=== PATIENT | male | born 1995 | race Caucasian/White ===

== ENCOUNTER 2017-01-13 17:22 | Emergency (ER) | payer OTHER ==
[~2017-01-13] VITALS: Ht 170.2 cm; Wt 87.0 kg
[~2017-01-13 17:22] MED LIST: IBUP-988 PO; IBUP800T23 PO; PERC5TAB12 PO; TAMS5CAP PO
--- NOTE | 2017-01-13 18:03 | PD ---
HPI . Sore throat, fever and nausea and vomiting Chief Complaint: GI Complaint Time Seen by Provider: 18:03 Travel History International Travel<30 days: No Contact w/Intl Traveler<30days: No Traveled to known affect area: No History of Present Illness HPI 21-year-old male here with complaints of sore throat for approximately 2 days with possible fever, nausea and vomiting for 1 day. Patient says he thinks he may have the flu. He said approximately 2 days ago he developed a sore throat, possible fevers as he had chills and sweating. He's been taking TheraFlu without much relief. He also reports that yesterday he developed sudden onset of nausea and diarrhea. He tells me that today he vomited times one episode. He had 2-3 bowel movements today. He denies exposure to any sick contacts. He does not have a primary care provider. He has no other complaints. PFSH Past Medical History Cancer: No Diabetes: No Diminished Hearing: No Headaches: Yes (FREQUENT HEADACHES. HX OF MIGRAINES) Psychiatric: Yes (1 instance when a kid) Immunizations Current: Yes Migraines: No Seizures: No Thyroid Disease: No Ulcer: No Tetanus Vaccination: < 5 Years Influenza Vaccination: No Past Surgical History Surgical History: No Previous Surgery Appendectomy: No Section: Yes Cholecystectomy: No Social History Alcohol Use: Yes (OCASSIONALLY) Tobacco Use: No Substance Use: No Allergies-Medications (Allergen,Severity, Reaction): Coded Allergies: No Known Allergies (Verified , 01/13/17) Reported Meds & Prescriptions Reported Meds & Active Scripts Active No Active Prescriptions or Reported Medications Review of Systems General / Constitutional: Positive: Fever, Chills Eyes: No: Visual changes HENT: Positive: Sore Throat, No: Headaches Cardiovascular: No: Chest Pain or Discomfort Respiratory: No: Shortness of Breath Gastrointestinal: Positive: Nausea, Vomiting, Diarrhea, No: Abdominal Pain Genitourinary: No: Dysuria Musculoskeletal: No: Pain Skin: No Rash Neurologic: No: Weakness Psychiatric: No: Depression Endocrine: No: Polydipsia Hematologic/Lymphatic: No: Easy Bruising Physical Exam Narrative GENERAL: AAO x 3, no acute distress, Well-nourished, well-developed patient. SKIN: Warm and dry. No visible rashes or bruising. HEAD: Normocephalic and atraumatic. EYES: No scleral icterus. No injection or drainage. ENT: No nasal drainage noted. Mucous membranes pink. Airway patent. Moderate posterior pharynx erythema without exudates. Mild tonsillar edema. TMs normal bilaterally. NECK: Supple, trachea midline. No JVD. Significant cervical chain lymphadenopathy. CARDIOVASCULAR: Regular rate and rhythm without murmurs, gallops, or rubs. RESPIRATORY: Breath sounds equal bilaterally. No accessory muscle use. No rhonchi or rales. GASTROINTESTINAL: Abdomen soft, non-tender, nondistended. Normoactive bowel sounds. EXTREMITIES: No cyanosis or edema. BACK: Nontender without obvious deformity. No CVA tenderness. PSYCH: AAO x 3, normal affect. Data Data Last Documented VS Vital Signs Date Time Temp Pulse Resp B/P Pulse Ox O2 Delivery O2 Flow Rate FiO2 01/13/17 18:09 98.2 78 16 128/73 98 Room Air Orders Influenzae A/B Antigen (01/13/17 18:07) Group A Rapid Strep Screen (01/13/17 18:07) Strep Culture (Group A) (01/13/17 18:10) MDM Medical Decision Making Medical Screen Exam Complete: Yes Emergency Medical Condition: Yes Medical Record Reviewed: Yes Differential Diagnosis Influenza, acute pharyngitis, sinusitis, less likely pneumonia, less likely bronchitis Narrative Course 21-year-old male here with complaints of sore throat for approximately 2 days with possible fever, nausea and vomiting for 1 day. Patient says he thinks he may have the flu. He said approximately 2 days ago he developed a sore throat, possible fevers as he had chills and sweating. He's been taking TheraFlu without much relief. He also reports that yesterday he developed sudden onset of nausea and diarrhea. He tells me that today he vomited times one episode. He had 2-3 bowel movements today. He denies exposure to any sick contacts. He does not have a primary care provider. He has no other complaints. Patient seen and examined. He has moderate posterior pharynx erythema and mild edema on examination. He also has some laryngitis as he is barely able to speak. His symptoms are consistent with influenza. I will swab him. If positive I will treat with Tamiflu. I will also check him for strep. If positive I will give him some antibiotics. Both tests are negative. I explained to him that this is likely a viral process and is self limiting. Explained that I will provide zofran for nausea. He can use tylenol or motrin PRN pain and fever. Patient verbalized understanding of instructions, questions were answered, and thanked me for their care. I advised them if their condition worsens, please return to the nearest emergency room for further care. Diagnosis Primary Impression: Viral infection Additional Impression: Viral intestinal infection Patient Instructions: Gastroenteritis (ED), General Instructions Additional Instructions: Please return to emergency department if your symptoms return or worsen. Follow up with your primary care provider. Take medications as prescribed. Use Zofran as needed for nausea. Take Tylenol or Motrin as needed for pain and fever. Med/Other Pt SpecificInfo: Prescription(s) given Scripts Ondansetron Odt (Zofran Odt)8 Mg Tab8 Mg SL Q12H PRN (NAUSEA OR VOMITING) #10 TAB Ref 0 Prov:Myranda Metcalf MD 01/13/17 Disposition: 01 DISCHARGE HOME Condition: Stable Cindy Salgado Jan 13, 2017 18:03
[2017-01-13 18:09] VITALS: BP 128/73; PULSE 78; RESP 16; TEMP 98.2; O2SAT 98
[2017-01-13] MEDS ORDERED: ZOFR8TAB4 SL (18:53)
== END 2017-01-13 19:02 | disposition home or self-care (01) ==
LOC: NEPD 17:22
DX: B34.9 Viral infection, unspecified (principal); A08.4 Viral intestinal infection, unspecified
CPT/HCPCS: 87081; 87804; 87880; 99284

== ENCOUNTER 2017-04-18 18:28 | Emergency (ER) | payer OTHER ==
[~2017-04-18] VITALS: Ht 170.2 cm; Wt 85.0 kg
[~2017-04-18 18:28] MED LIST changes: -IBUP-988 PO; -IBUP800T23 PO; -PERC5TAB12 PO; -TAMS5CAP PO; +ZOFR8TAB4 SL
[2017-04-18 18:30] VITALS: BP 147/90; PULSE 62; RESP 16; TEMP 98.4; O2SAT 97
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
== END 2017-04-18 23:17 | disposition home or self-care (01) ==
LOC: NEPD 18:28
DX: S46.211A Strain of muscle, fascia and tendon of other parts of biceps, right arm, initial encounter (principal); V43.52XA Car driver injured in collision with other type car in traffic accident, initial encounter
CPT/HCPCS: 99281

== ENCOUNTER 2017-12-20 19:36 | Emergency (ER) | payer OTHER ==
[~2017-12-20] VITALS: Ht 170.2 cm; Wt 75.0 kg
[2017-12-20 20:01] VITALS: BP 155/85; PULSE 75; RESP 16; TEMP 99.2; O2SAT 99
--- NOTE | 2017-12-20 22:25 | PD ---
HPI Chief Complaint: Cold / Flu Symptoms Time Seen by Provider: 22:16 Travel History International Travel<30 days: No Contact w/Intl Traveler<30days: No Traveled to known affect area: No History of Present Illness HPI 22-year-old white male presents emergency department with 24-hour history of subjective fever and chills, headache, runny nose, sore throat, cough, congestion, shortness of breath, nausea, myalgias, arthralgias and general malaise. He denies any ear pain, sputum production, wheezing, vomiting, abdominal pain or diarrhea. No urinary symptoms. He has not taken anything for fever recently. PFSH Past Medical History Cancer: No Diabetes: No Diminished Hearing: No Headaches: Yes (FREQUENT HEADACHES. HX OF MIGRAINES) Psychiatric: Yes (1 instance when a kid) Immunizations Current: Yes Migraines: No Seizures: No Thyroid Disease: No Ulcer: No Tetanus Vaccination: < 5 Years Past Surgical History Appendectomy: No Cholecystectomy: No Social History Alcohol Use: Yes (OCASSIONALLY) Tobacco Use: Yes Substance Use: No Allergies-Medications (Allergen,Severity, Reaction): Coded Allergies: No Known Allergies (Verified Adverse Reaction, Unknown, 12/20/17) Reported Meds & Prescriptions Reported Meds & Active Scripts Active No Active Prescriptions or Reported Medications Review of Systems Except as stated in HPI: all other systems reviewed are Neg Physical Exam Narrative GENERAL: Well-developed, well-nourished in no acute distress. Nontoxic appearing. HEAD: Normocephalic, atraumatic. EYES: Pupils equal round and reactive. Extraocular motions intact. No scleral icterus. No injection or drainage. ENT: TMs clear without erythema. The external auditory canals clear. Nose: clear . Posterior pharynx is erythematous pink and moist. No tonsillar edema or exudate. Uvula midline. Airway patent. NECK: Trachea midline.Supple, nontender, moves head freely. No central bony tenderness or spasm. CARDIOVASCULAR: Regular rate and rhythm without murmurs, gallops, or rubs. RESPIRATORY: Clear to auscultation. Breath sounds equal bilaterally. No wheezes , rales, or rhonchi. GASTROINTESTINAL: Abdomen soft, non-tender, nondistended. No hepato-splenomegaly , or palpable masses. No guarding. EXTREMITIES: No clubbing, cyanosis, or edema. No joint tenderness, effusion, or edema noted. BACK: Nontender without deformity or crepitance. No flank tenderness. Data Data Last Documented VS Vital Signs Date Time Temp Pulse Resp B/P (MAP) Pulse Ox O2 Delivery O2 Flow Rate FiO2 12/20/17 20:01 99.2 75 16 155/85 (108) 99 Orders Orders Group A Rapid Strep Screen (12/20/17 22:22) Ondansetron Odt (Zofran Odt) (12/20/17 22:30) Ibuprofen (Motrin) (12/20/17 22:30) Influenzae A/B Antigen (12/20/17 22:22) Strep Culture (Group A) (12/20/17 22:23) Oseltamivir (Tamiflu) (12/20/17 23:00) Ed Discharge Order (12/20/17 22:59) MDM Medical Decision Making Medical Screen Exam Complete: Yes Emergency Medical Condition: Yes Medical Record Reviewed: Yes Interpretation(s) Rapid strep: Negative Influenza: Positive for influenza A Differential Diagnosis MDM: High Differential diagnoses: Pneumonia, bronchitis, URI, asthma, RAD, legionnaire's disease, SARS, ARDS, influenza, bronchiolitis, RSV,PE,CHF Narrative Course Patient is given Zofran 4 mg p.o. and Motrin 600 mg p.o. Rapid strep and influenza ordered. Diagnosis Primary Impression: Influenza Patient Instructions: General Instructions Departure Forms: Tests/Procedures, Work Release Special Instructions: No work 5 days. Additional Instructions: Rest. Increase fluids. Tylenol and Advil. Robitussin-DM. Tamiflu. Followup with your Dr. in one week. Return to the ER for any problems. Anticipate to be sick 1 week. Med/Other Pt SpecificInfo: Prescription(s) given Scripts Oseltamivir (Tamiflu) 75 Mg Cap 75 MG PO BID for Mgmt Viral Infection, #9 CAP 0 Refills Prov: Flako Rodriguez MD 12/20/17 Disposition: 01 DISCHARGE HOME Condition: Stable Jeffrey Saenz Dec 20, 2017 22:25
[2017-12-20] MEDS ORDERED: ONDANSETRON ODT 4 MG TAB PO ONE (22:30)
[2017-12-20] MEDS ORDERED: IBUPROFEN 600 MG TAB PO ONE (22:30)
[2017-12-20] MEDS ORDERED: OSEL75 PO (23:00)
[2017-12-20] MEDS ORDERED: OSELTAMIVIR PHOSPHATE 75 MG CAP PO ONE (23:00)
== END 2017-12-20 23:39 | disposition home or self-care (01) ==
LOC: NEPD 19:36
DX: J10.1 Influenza due to other identified influenza virus with other respiratory manifestations (principal); Z72.0 Tobacco use
CPT/HCPCS: 87081; 87804; 87880; 99283

== ENCOUNTER 2018-01-22 21:29 | Emergency (ER) | payer OTHER ==
[~2018-01-22] VITALS: Ht 170.2 cm; Wt 75.0 kg
[~2018-01-22 21:29] MED LIST changes: +OSEL75 PO; -ZOFR8TAB4 SL
[2018-01-22 22:03] VITALS: BP 140/92; PULSE 58; RESP 16; TEMP 98.3; O2SAT 99
--- NOTE | 2018-01-22 23:24 | PD ---
HPI Chief Complaint: Abdominal Pain Time Seen by Provider: 23:23 Travel History International Travel<30 days: No Contact w/Intl Traveler<30days: No Traveled to known affect area: No History of Present Illness HPI 22-year-old male with no significant medical history presents emergency department for evaluation of acute onset epigastric and left upper quadrant abdominal pain around 2 AM this morning. Patient states it has persisted and worsened throughout the day. He has been nauseous with an episode of vomiting prior to arrival. Pain is sharp, moderate in severity. Denies any fever or chills. No bowel or bladder changes. Patient has no history of abdominal surgeries. No other symptoms to report. PFSH Past Medical History ADHD: Yes (ADD) Weight (Kg): 3 Cancer: No Diabetes: No Diminished Hearing: No Headaches: Yes (FREQUENT HEADACHES. HX OF MIGRAINES) Psychiatric: Yes (1 instance when a kid) Immunizations Current: Yes Migraines: No Seizures: No Thyroid Disease: No Ulcer: No Tetanus Vaccination: Unknown Influenza Vaccination: No Past Surgical History Surgical History: No Previous Surgery Appendectomy: No Cholecystectomy: No Social History Alcohol Use: No Tobacco Use: No Substance Use: No Allergies-Medications (Allergen,Severity, Reaction): Coded Allergies: No Known Allergies (Verified Adverse Reaction, Unknown, 01/22/18) Reported Meds & Prescriptions Reported Meds & Active Scripts Active Omeprazole 40 Mg Cap 40 Mg PO DAILY Review of Systems Except as stated in HPI: all other systems reviewed are Neg Physical Exam Narrative GENERAL: Well-nourished male patient, in no acute distress SKIN: Focused skin assessment warm/dry. HEAD: Atraumatic. Normocephalic. EYES: Pupils equal and round. No scleral icterus. No injection or drainage. ENT: No nasal bleeding or discharge. Mucous membranes pink and moist. NECK: Trachea midline. No JVD. CARDIOVASCULAR: Regular rate and rhythm. No murmur appreciated. RESPIRATORY: No accessory muscle use. Clear to auscultation. Breath sounds equal bilaterally. GASTROINTESTINAL: Abdomen soft, n nondistended. Left upper quadrant tenderness to palpation, mild guarding. No rebound tenderness.. Hepatic and splenic margins not palpable. MUSCULOSKELETAL: No obvious deformities. No clubbing. No cyanosis. No edema. NEUROLOGICAL: Awake and alert. No obvious cranial nerve deficits. Motor grossly within normal limits. Normal speech. PSYCHIATRIC: Appropriate mood and affect; insight and judgment normal. Data Data Last Documented VS Vital Signs Date Time Temp Pulse Resp B/P (MAP) Pulse Ox O2 Delivery O2 Flow Rate FiO2 01/23/18 02:07 01/23/18 00:00 63 18 99 Room Air 01/22/18 22:03 98.3 Orders Orders Complete Blood Count With Diff (01/22/18 23:47) Comprehensive Metabolic Panel (01/22/18 23:47) Lipase (01/22/18 23:47) Urinalysis - C+S If Indicated (01/22/18 23:47) Ct Abd/Pel W Iv Contrast(Rout) (01/22/18 23:47) Iv Access Insert/Monitor (01/22/18 23:47) Ecg Monitoring (01/22/18 23:47) Oximetry (01/22/18 23:47) Sodium Chloride 0.9% Flush (Ns Flush) (01/23/18 00:00) Ketorolac Inj (Toradol Inj) (01/23/18 00:00) Ondansetron Inj (Zofran Inj) (01/23/18 00:00) Iohexol 350 Inj (Omnipaque 350 Inj) (01/23/18 01:18) Ed Discharge Order (01/23/18 02:02) Labs Laboratory Tests Test 01/22/18 23:56 White Blood Count 14.8 TH/MM3 Red Blood Count 5.50 MIL/MM3 Hemoglobin 16.6 GM/DL Hematocrit 47.5 % Mean Corpuscular Volume 86.4 FL Mean Corpuscular Hemoglobin 30.2 PG Mean Corpuscular Hemoglobin Concent 35.0 % Red Cell Distribution Width 12.9 % Platelet Count 212 TH/MM3 Mean Platelet Volume 9.5 FL Neutrophils (%) (Auto) 88.0 % Lymphocytes (%) (Auto) 6.6 % Monocytes (%) (Auto) 4.7 % Eosinophils (%) (Auto) 0.2 % Basophils (%) (Auto) 0.5 % Neutrophils # (Auto) 13.0 TH/MM3 Lymphocytes # (Auto) 1.0 TH/MM3 Monocytes # (Auto) 0.7 TH/MM3 Eosinophils # (Auto) 0.0 TH/MM3 Basophils # (Auto) 0.1 TH/MM3 CBC Comment DIFF FINAL Differential Comment Urine Color YELLOW Urine Turbidity CLOUDY Urine pH 6.5 Urine Specific [place] 1.025 Urine Protein TRACE mg/dL Urine Glucose (UA) NEG mg/dL Urine Ketones NEG mg/dL Urine Occult Blood NEG Urine Nitrite NEG Urine Bilirubin NEG Urine Urobilinogen LESS THAN 2.0 MG/DL Urine Leukocyte Esterase NEG Urine RBC LESS THAN 1 /hpf Urine WBC LESS THAN 1 /hpf Urine Amorphous Sediment RARE Urine Bacteria RARE /hpf Urine Mucus FEW /lpf Microscopic Urinalysis Comment CULT NOT INDICATED Blood Urea Nitrogen 13 MG/DL Creatinine 1.14 MG/DL Random Glucose 97 MG/DL Total Protein 7.4 GM/DL Albumin 4.4 GM/DL Calcium Level 9.0 MG/DL Alkaline Phosphatase 99 U/L Aspartate Amino Transf (AST/SGOT) 28 U/L Alanine Aminotransferase (ALT/SGPT) 62 U/L Total Bilirubin 0.6 MG/DL Sodium Level 141 MEQ/L Potassium Level 4.0 MEQ/L Chloride Level 104 MEQ/L Carbon Dioxide Level 28.3 MEQ/L Anion Gap 9 MEQ/L Estimat Glomerular Filtration Rate 80 ML/MIN Lipase 139 U/L [facility] Medical Decision Making Medical Screen Exam Complete: Yes Emergency Medical Condition: Yes Medical Record Reviewed: Yes Differential Diagnosis Pancreatitis versus gastritis versus muscle spasm versus renal calculi Narrative Course 22-year-old male presents emergency department for evaluation of abdominal pain , acute onset this morning around 2 AM. Patient appears without distress. Mild left upper quadrant tenderness to palpation. Patient is treated for pain. Laboratory Tests Test 01/22/18 23:56 White Blood Count 14.8 TH/MM3 Red Blood Count 5.50 MIL/MM3 Hemoglobin 16.6 GM/DL Hematocrit 47.5 % Mean Corpuscular Volume 86.4 FL Mean Corpuscular Hemoglobin 30.2 PG Mean Corpuscular Hemoglobin Concent 35.0 % Red Cell Distribution Width 12.9 % Platelet Count 212 TH/MM3 Mean Platelet Volume 9.5 FL Neutrophils (%) (Auto) 88.0 % Lymphocytes (%) (Auto) 6.6 % Monocytes (%) (Auto) 4.7 % Eosinophils (%) (Auto) 0.2 % Basophils (%) (Auto) 0.5 % Neutrophils # (Auto) 13.0 TH/MM3 Lymphocytes # (Auto) 1.0 TH/MM3 Monocytes # (Auto) 0.7 TH/MM3 Eosinophils # (Auto) 0.0 TH/MM3 Basophils # (Auto) 0.1 TH/MM3 CBC Comment DIFF FINAL Differential Comment Urine Color YELLOW Urine Turbidity CLOUDY Urine pH 6.5 Urine Specific [place] 1.025 Urine Protein TRACE mg/dL Urine Glucose (UA) NEG mg/dL Urine Ketones NEG mg/dL Urine Occult Blood NEG Urine Nitrite NEG Urine Bilirubin NEG Urine Urobilinogen LESS THAN 2.0 MG/DL Urine Leukocyte Esterase NEG Urine RBC LESS THAN 1 /hpf Urine WBC LESS THAN 1 /hpf Urine Amorphous Sediment RARE Urine Bacteria RARE /hpf Urine Mucus FEW /lpf Microscopic Urinalysis Comment CULT NOT INDICATED Blood Urea Nitrogen 13 MG/DL Creatinine 1.14 MG/DL Random Glucose 97 MG/DL Total Protein 7.4 GM/DL Albumin 4.4 GM/DL Calcium Level 9.0 MG/DL Alkaline Phosphatase 99 U/L Aspartate Amino Transf (AST/SGOT) 28 U/L Alanine Aminotransferase (ALT/SGPT) 62 U/L Total Bilirubin 0.6 MG/DL Sodium Level 141 MEQ/L Potassium Level 4.0 MEQ/L Chloride Level 104 MEQ/L Carbon Dioxide Level 28.3 MEQ/L Anion Gap 9 MEQ/L Estimat Glomerular Filtration Rate 80 ML/MIN Lipase 139 U/L Last Impressions Abdomen/Pelvis CT 01/22/18 0943 Signed Impressions: Service Date/Time: Tuesday, January 23, 2018 01:12 - CONCLUSION: 1. No acute findings in abdomen and pelvic CT. Small cyst upper pole left kidney. Jeffrey Wilhelm MD Findings are reviewed and discussed with my attending physician. Patient will be discharged home to follow-up with a primary care provider. He agrees to return immediately with acute worsening symptoms. Diagnosis Primary Impression: Abdominal pain Qualified Codes: R10.13 - Epigastric pain Referrals: Primary Care Physician Patient Instructions: Abdominal Pain (ED), General Instructions Additional Instructions: Avoid abrasive and acidic foods Follow-up with a primary care provider Return immediately with any acute worsening symptoms Med/Other Pt SpecificInfo: Prescription(s) given Scripts Omeprazole (Omeprazole) 40 Mg Cap 40 MG PO DAILY, #14 CAP 0 Refills Prov: Brenda Roque 01/23/18 Disposition: 01 DISCHARGE HOME Condition: Stable Brenda Roque Jan 22, 2018 23:24
[2018-01-22 23:59] VITALS: RESP 18; O2SAT 99
[2018-01-23] VITALS: BP 136/85; PULSE 63; RESP 18; O2SAT 99
[2018-01-23] MEDS ORDERED: SODIUM CHLORIDE 0.9% FLUSH 10 ML FLUSH IV FLUSH PRN
[2018-01-23] MEDS ORDERED: KETOROLAC TROMETHAMINE 30 MG/ML (IVP) VIAL IV PUSH ONE
[2018-01-23] MEDS ORDERED: ONDANSETRON HCL 4 MG/2 ML VIAL IV PUSH ONE
[2018-01-23 00:12] LABS: AMORPHOUS SEDIMENT, URINE RARE; BACTERIA, URINE RARE /hpf; BILIRUBIN, URINE NEG (NEG); BLOOD, URINE NEG (NEG); GLUCOSE,URINE NEG (NEG); KETONE, URINE NEG (NEG); MUCUS URINE FEW /lpf (OCC); NITRITE,URINE NEG (NEG); PH, URINE 6.5 (5.0-8.5); URINE COLOR YELLOW (YELLW/STRAW); URINE LEUKOCYTE ESTERASE NEG (NEG)
[2018-01-23 00:13] LABS: BASOPHIL # 0.1 TH/MM3 (0-0.2); BASOPHIL % 0.5 % (0.0-2.0); EOSINOPHIL % 0.2 % (0.0-4.0); HEMATOCRIT 47.5 % (39.0-51.0); HEMOGLOBIN 16.6 GM/DL (13.0-17.0); LYMPH % 6.6 % (9.0-44.0); MEAN CELL VOLUME 86.4 FL (80.0-100.0); MEAN CORPUSCULAR HEMOGLOBIN 30.2 PG (27.0-34.0); MEAN PLATELET VOLUME 9.5 FL (7.0-11.0); MONO % 4.7 % (0.0-8.0); MONOCYTE # 0.7 TH/MM3 (0-0.9); PLATELET COUNT 212 TH/MM3 (150-450); RED CELL DISTRIBUTION WIDTH 12.9 % (11.6-17.2); WHITE BLOOD COUNT 14.8 TH/MM3 (4.0-11.0)
[2018-01-23 00:21] LABS: ALBUMIN 4.4 GM/DL (3.4-5.0); ALT (GPT) 62 U/L (12-78); AST (GOT) 28 U/L (15-37); BICARBONATE 28.3 MEQ/L (21.0-32.0); BLOOD UREA NITROGEN 13 MG/DL (7-18); CHLORIDE 104 MEQ/L (98-107); CREATININE 1.14 MG/DL (0.60-1.30); GLOMERULAR FILTRATION RATE 80 ML/MIN (>89); GLUCOSE,RANDOM 97 MG/DL (74-106); SODIUM (NA) 141 MEQ/L (136-145)
[2018-01-23 00:24] LABS: ALKALINE PHOSPHATASE 99 U/L (45-117); TOTAL BILIRUBIN ADULT 0.6 MG/DL (0.2-1.0); TOTAL PROTEIN 7.4 GM/DL (6.4-8.2)
[2018-01-23] MEDS ORDERED: IOHEXOL 350 MG/ML 10 ML VIAL (for RAD DIAG) IVCONTRAST ONE (01:18)
--- NOTE | 2018-01-23 01:55 | RADRPT ---
EXAM DATE/TIME: 01/23/2018 01:12 [place] COMPARISON: No previous studies available for comparison. INDICATIONS : Abdominal pain and vomiting. IV CONTRAST: 75 cc Omnipaque 350 (iohexol) IV ORAL CONTRAST: No oral contrast ingested. RADIATION DOSE: 6.71 CTDIvol (mGy) MEDICAL HISTORY : None SURGICAL HISTORY : None. ENCOUNTER: Initial ACUITY: 1 day PAIN SCALE: 5/10 LOCATION: Abdomen. TECHNIQUE: Volumetric scanning of the abdomen and pelvis was performed. Using automated exposure control and ad justment of the mA and/or kV according to patient size, radiation dose was kept as low as reasonably achievable to obtain optimal diagnostic quality images. DICOM format image data is available electro nically for review and comparison. FINDINGS: LOWER LUNGS: The visualized lower lungs are clear. LIVER: Homogeneous density without lesion. There is no dilation of the biliary tree. No calcified gallston es. SPLEEN: Normal size without lesion. PANCREAS: Within normal limits. KIDNEYS: Normal in size and shape. There is no mass, stone or hydronephrosis. ADRENAL GLANDS: Within normal limits. VASCULAR: There is no aortic aneurysm. BOWEL/MESENTERY: The stomach, small bowel, and colon demonstrate no acute abnormality. There is no free intraperitone al air or fluid. ABDOMINAL WALL: Within normal limits. RETROPERITONEUM: There is no lymphadenopathy. BLADDER: No wall thickening or mass. REPRODUCTIVE: Within normal limits. INGUINAL: There is no lymphadenopathy or hernia. MUSCULOSKELETAL: Within normal limits for patient age. CONCLUSION: 1. No acute findings in abdomen and pelvic CT. Small cyst upper pole left kidney. Jeffrey Wilhelm MD on January 23, 2018 at 1:51 Board Certified Radiologist. This report was verified electronically.
[2018-01-23] MEDS ORDERED: OMEP40CA2 PO (02:04)
== END 2018-01-23 02:12 | disposition home or self-care (01) ==
LOC: NEPD 21:29
DX: R10.13 Epigastric pain (principal)
CPT/HCPCS: 74177; 80053; 81001; 83690; 85025; 96374; 96375; 99284; J1885; J2405; Q9967

== ENCOUNTER 2018-02-20 03:12 | Emergency (ER) | payer OTHER ==
[~2018-02-20] VITALS: Ht 170.2 cm; Wt 80.0 kg
[~2018-02-20 03:12] MED LIST changes: +IBUP-232 PO; -OSEL75 PO
[2018-02-20 03:15] VITALS: BP 153/87; PULSE 60; RESP 16; TEMP 98.3; O2SAT 100
--- NOTE | 2018-02-20 03:59 | PD ---
HPI Chief Complaint: Abdominal Pain Time Seen by Provider: 03:38 Travel History International Travel<30 days: No Contact w/Intl Traveler<30days: No Traveled to known affect area: No History of Present Illness HPI 22yo M with PMH of nephrolithiasis presents to the ED with c/o periumbilical abdominal pain since 9pm last night. Said pain is sharp and constant and associated with nausea. Denies any fever, chest pain, sob, diarrhea, dysuria, hematuria, testicular pain, penile discharge or rash. Pt said he had similar pain before. He was seen here in 12/2017 for similar abdominal pain and had CT a /p that was negative except small cyst in left kidney. PFSH Past Medical History ADD: Yes ADHD: Yes (ADD) Weight (Kg): 3 Cancer: No Diabetes: No Diminished Hearing: No Headaches: Yes (FREQUENT HEADACHES. HX OF MIGRAINES) Psychiatric: Yes (1 instance when a kid) Immunizations Current: Yes Migraines: No Seizures: No Thyroid Disease: No Ulcer: No Past Surgical History Surgical History: No Previous Surgery Appendectomy: No Cholecystectomy: No Social History Alcohol Use: Yes (SOCIALLY) Tobacco Use: Yes (OCC.) Substance Use: No Allergies-Medications (Allergen,Severity, Reaction): Coded Allergies: No Known Allergies (Verified Adverse Reaction, Unknown, 02/20/18) Reported Meds & Prescriptions Reported Meds & Active Scripts Active Ibuprofen 600 Mg Tab 600 Mg PO Q8H PRN Review of Systems Except as stated in HPI: all other systems reviewed are Neg Physical Exam Narrative GENERAL: 22yo M in mild distress. SKIN: Focused skin assessment warm/dry. HEAD: Atraumatic. Normocephalic. EYES: Pupils equal and round. No scleral icterus. No injection or drainage. ENT: No nasal bleeding or discharge. Mucous membranes pink and moist. NECK: Trachea midline. No JVD. CARDIOVASCULAR: Regular rate and rhythm. No murmur appreciated. RESPIRATORY: No accessory muscle use. Clear to auscultation. Breath sounds equal bilaterally. GASTROINTESTINAL: Abdomen soft, Mild periumbilical ttp. No rebound tenderness or guarding. No RLQ ttp. MUSCULOSKELETAL: No obvious deformities. No clubbing. No cyanosis. No edema. NEUROLOGICAL: Awake and alert. No obvious cranial nerve deficits. Motor grossly within normal limits. Normal speech. PSYCHIATRIC: Appropriate mood and affect; insight and judgment normal. Data Data Last Documented VS Vital Signs Date Time Temp Pulse Resp B/P (MAP) Pulse Ox O2 Delivery O2 Flow Rate FiO2 02/20/18 03:15 98.3 60 16 153/87 (109) 100 Orders Orders Complete Blood Count With Diff (02/20/18 03:49) Comprehensive Metabolic Panel (02/20/18 03:49) Lipase (02/20/18 03:49) Urinalysis - C+S If Indicated (02/20/18 03:49) Al-Mag Hy-Si 40-40-4 Mg/Ml Liq (Mag-Al P (02/20/18 04:00) Lidocaine 2% Viscous (Xylocaine 2% Visco (02/20/18 04:00) Ct Abd/Pel W Iv Contrast(Rout) (02/20/18 ) Morphine Inj (Morphine Inj) (02/20/18 05:30) Ondansetron Odt (Zofran Odt) (02/20/18 05:30) Iohexol 350 Inj (Omnipaque 350 Inj) (02/20/18 06:06) Labs Laboratory Tests Test 02/20/18 04:10 02/20/18 04:30 White Blood Count 14.1 TH/MM3 Red Blood Count 5.53 MIL/MM3 Hemoglobin 16.8 GM/DL Hematocrit 48.1 % Mean Corpuscular Volume 86.9 FL Mean Corpuscular Hemoglobin 30.4 PG Mean Corpuscular Hemoglobin Concent 34.9 % Red Cell Distribution Width 12.9 % Platelet Count 236 TH/MM3 Mean Platelet Volume 9.5 FL Neutrophils (%) (Auto) 82.4 % Lymphocytes (%) (Auto) 11.0 % Monocytes (%) (Auto) 5.6 % Eosinophils (%) (Auto) 0.7 % Basophils (%) (Auto) 0.3 % Neutrophils # (Auto) 11.6 TH/MM3 Lymphocytes # (Auto) 1.6 TH/MM3 Monocytes # (Auto) 0.8 TH/MM3 Eosinophils # (Auto) 0.1 TH/MM3 Basophils # (Auto) 0.0 TH/MM3 CBC Comment DIFF FINAL Differential Comment Blood Urea Nitrogen 12 MG/DL Creatinine 1.03 MG/DL Random Glucose 95 MG/DL Total Protein 7.3 GM/DL Albumin 4.3 GM/DL Calcium Level 9.0 MG/DL Alkaline Phosphatase 96 U/L Aspartate Amino Transf (AST/SGOT) 17 U/L Alanine Aminotransferase (ALT/SGPT) 35 U/L Total Bilirubin 0.7 MG/DL Sodium Level 141 MEQ/L Potassium Level 4.3 MEQ/L Chloride Level 106 MEQ/L Carbon Dioxide Level 28.0 MEQ/L Anion Gap 7 MEQ/L Estimat Glomerular Filtration Rate 90 ML/MIN Lipase 100 U/L Urine Color YELLOW Urine Turbidity CLEAR Urine pH 7.5 Urine Specific [place] 1.023 Urine Protein NEG mg/dL Urine Glucose (UA) NEG mg/dL Urine Ketones NEG mg/dL Urine Occult Blood NEG Urine Nitrite NEG Urine Bilirubin NEG Urine Urobilinogen LESS THAN 2.0 MG/DL Urine Leukocyte Esterase NEG Urine RBC LESS THAN 1 /hpf Urine WBC LESS THAN 1 /hpf Urine Mucus FEW /lpf Microscopic Urinalysis Comment CULT NOT INDICATED MDM Medical Decision Making Medical Screen Exam Complete: Yes Emergency Medical Condition: Yes Differential Diagnosis Gastroenteritis vs. nephrolithiasis vs. cystitis Narrative Course 22yo M with generalized periumbilical abdominal pain and nausea. Labs reviewed , mild leukocytosis at 14.1, similar to prior on 12/2017. H/H normal. CMP unremarkable. Lipase normal. UA showed WBC less than 1. Culture not indicated. Pt reevaluated after GI cocktail and said he is still in pain and medication did not help. On reevaluation, said it hurts when I palpate his right lower abdomen. Since he now has RLQ pain, will do CT a/p to r/o appendicitis. Pt given zofran and morphine. No PSH. CT a/p showed unremarkable bowel gas pattern and normal appendix. Small cyst again noted in left kidney. Pt reevaluated at bedside after morphine and pain has completely resolved. Return precautions given. Diagnosis Primary Impression: Abdominal pain Qualified Codes: R10.84 - Generalized abdominal pain Patient Instructions: General Instructions Departure Forms: Tests/Procedures Additional Instructions: Please follow up with [facility] for follow up and possible gastroenterology referral. Return to the ED if symptoms worsen. Med/Other Pt SpecificInfo: Prescription(s) given Scripts Acetaminophen (Tylenol) 325 Mg Tab 650 MG PO Q6H Y for PAIN SCALE 1 TO 4, #20 TAB 0 Refills Prov: Sherita Bueno 02/20/18 Disposition: 01 DISCHARGE HOME Condition: Stable Sherita Bueno DO February 20, 2018 03:59
[2018-02-20] MEDS ORDERED: LIDOCAINE VISCOUS 2% SOLN 15 ML UDC PO ONE (04:00)
[2018-02-20] MEDS ORDERED: ALUMINUM/MAGNESIUM/SIMETH 30 ML CUP PO ONE (04:00)
[2018-02-20 04:32] LABS: AUTOMATED NEUTROPHIL # 11.6 TH/MM3 (1.8-7.7); BASOPHIL % 0.3 % (0.0-2.0); EOSINOPHIL # 0.1 TH/MM3 (0-0.4); EOSINOPHIL % 0.7 % (0.0-4.0); HEMATOCRIT 48.1 % (39.0-51.0); HEMOGLOBIN 16.8 GM/DL (13.0-17.0); LYMPHOCYTE # 1.6 TH/MM3 (1.0-4.8); MEAN CELL VOLUME 86.9 FL (80.0-100.0); MEAN CORPUSCULAR HEMOGLOBIN 30.4 PG (27.0-34.0); MEAN CORPUSCULAR HGB CONC 34.9 % (32.0-36.0); MEAN PLATELET VOLUME 9.5 FL (7.0-11.0); MONO % 5.6 % (0.0-8.0); MONOCYTE # 0.8 TH/MM3 (0-0.9); NEUT % 82.4 % (16.0-70.0); PLATELET COUNT 236 TH/MM3 (150-450); RED BLOOD COUNT 5.53 MIL/MM3 (4.50-5.90); RED CELL DISTRIBUTION WIDTH 12.9 % (11.6-17.2); WHITE BLOOD COUNT 14.1 TH/MM3 (4.0-11.0)
[2018-02-20 04:40] LABS: ALBUMIN 4.3 GM/DL (3.4-5.0); ALT (GPT) 35 U/L (12-78); AST (GOT) 17 U/L (15-37); BLOOD UREA NITROGEN 12 MG/DL (7-18); CHLORIDE 106 MEQ/L (98-107); CREATININE 1.03 MG/DL (0.60-1.30); GLOMERULAR FILTRATION RATE 90 ML/MIN (>89); GLUCOSE,RANDOM 95 MG/DL (74-106); SODIUM (NA) 141 MEQ/L (136-145)
[2018-02-20 04:42] LABS: ALKALINE PHOSPHATASE 96 U/L (45-117); TOTAL BILIRUBIN ADULT 0.7 MG/DL (0.2-1.0); TOTAL PROTEIN 7.3 GM/DL (6.4-8.2)
[2018-02-20 04:55] LABS: BILIRUBIN, URINE NEG (NEG); BLOOD, URINE NEG (NEG); GLUCOSE,URINE NEG (NEG); KETONE, URINE NEG (NEG); MUCUS URINE FEW /lpf (OCC); NITRITE,URINE NEG (NEG); PH, URINE 7.5 (5.0-8.5); URINE COLOR YELLOW (YELLW/STRAW); URINE LEUKOCYTE ESTERASE NEG (NEG)
[2018-02-20] MEDS ORDERED: ONDANSETRON ODT 4 MG TAB PO ONE (05:30)
[2018-02-20] MEDS ORDERED: MORPHINE SULFATE 4 MG/ML INJ IV PUSH ONE (05:30)
[2018-02-20] MEDS ORDERED: IOHEXOL 350 MG/ML 10 ML VIAL (for RAD DIAG) IVCONTRAST ONE (06:06)
--- NOTE | 2018-02-20 06:09 | RADRPT ---
EXAM DATE: 02/20/2018 6:04 AM EDT AGE/SEX: 22 years / Male INDICATIONS: Right lower quadrant pain. CLINICAL DATA: This is the patient's initial encounter. Patient reports that signs and symptoms have been present for 1 day and indicates a pain score of 6/10. MEDICAL/SURGICAL HISTORY: None. None. ORAL CONTRAST: No oral contrast ingested. RADIATION DOSE: 7.11 CTDI (mGy) COMPARISON: [facility] [place] ABDOMEN & PELVIS W CONTRAST, 01/23/2018. . TECHNIQUE: Multiple contiguous axial images were obtained through the abdomen and pelvis following b olus infusion of 100 ml Omnipaque 350 (iohexol) nonionic water-soluble contrast as a single exam do se. No oral contrast ingested. Using automated exposure control and adjustment of the mA and/or kV a ccording to patient size, the radiation dose was kept as low as reasonably achievable to obtain optim al diagnostic quality images. FINDINGS: Lower Lungs: The visualized lower lungs are clear. Liver: The liver has a homogeneous density without space-occupying lesion. There is no dilation of th e biliary tree. The gallbladder remains unremarkable. Spleen: Homogeneous density without enlargement. Pancreas: Unremarkable without mass or calcification. Kidneys: Normal in size and shape. No evidence of a solid mass or hydronephrosis. A cyst is again no kaden in the upper pole of the left kidney. Adrenal Glands: Unremarkable. Aorta: The aorta and proximal iliac vessels are grossly unremarkable without aneurysmal dilation. Bowel/Mesentery: No oral contrast was given limiting the sensitivity of the exam. The bowel loops are grossly unremarkable. The cecum and sigmoid colon have a normal configuration. There is a normal vaughn endix. Abdominal Wall: Intact. Retroperitoneum: No evidence of adenopathy in the retrocrural, para-aortic, or deep pelvic regions. Bladder: Contours are smooth. Reproductive Organs: No abnormal masses or calcifications seen. Inguinal: The inguinal region is unremarkable without evidence of adenopathy. Bony Structures: Unremarkable. CONCLUSION: 1. Unremarkable bowel gas pattern and normal appendix. 2. Small cyst again noted in the left kidney. Electronically signed by: Marcos Jimenez MD 02/20/2018 6:08 AM EDT
[2018-02-20] MEDS ORDERED: TYLE325T PO (06:24)
== END 2018-02-20 06:51 | disposition home or self-care (01) ==
LOC: NEPC 03:12
DX: R10.84 Generalized abdominal pain (principal); Z72.0 Tobacco use
CPT/HCPCS: 74177; 80053; 81001; 83690; 85025; 96374; 99284; J2270; Q9967